=== PATIENT | male | born 1975 | race Caucasian/White ===

== ENCOUNTER 2018-08-05 04:41 | Inpatient (IN) | payer OTHER ==
[~2018-08-05] VITALS: Ht 165.1 cm; Wt 127.9 kg
[2018-08-05 04:47] VITALS: Ht 165.1 cm; Wt 127.9 kg
--- NOTE | 2018-08-05 04:53 | NUR ---
PT TAKEN TO 1T FOR EKG, PT WALKS WITH STEADY GAIT.
--- NOTE | 2018-08-05 05:02 | NUR ---
PATIENT SEEN WITH COMPLAINT OF SHORTNESS OF BREATH, CHEST PRESSURE AND VOMITING, H/O DIABETES, AND CARDIAC. PATIENT SEEN WITH MILD DYSPNEA AT REST. OXYGEN WAS GIVEN FOR SATURATION OF 89 % -90% ON ROOM AIR. PATIENT IS WAITNG FOR MD EVALUATION.
--- NOTE | 2018-08-05 05:23 | NUR ---
PATIENT WASS EEN BY . SALINE LOCK INSERTED . PATIENT MEDICATED WITH LASIX, NOTROPASTE AND ASA. BLOOD WAS DRAWN BY LAB
[2018-08-05 05:24] LABS: BASOPHIL % 3.2 % (0-2); PLATELET COUNT 189 x10^3mcL (130-400); RED CELL DISTRIBUTION WIDTH 13.8 % (11.5-14.5)
[2018-08-05] MEDS ORDERED: LIPI10 PO (05:26)
[2018-08-05] MEDS ORDERED: MONTELUKAST SOD10 M1 PO (05:26)
[2018-08-05] MEDS ORDERED: LASIX20 MG PO (05:27)
[2018-08-05] MEDS ORDERED: GOOD SENSE OMEP20 MG PO (05:27)
[2018-08-05] MEDS ORDERED: HYDRALAZINE HY100 MG PO (05:28)
[2018-08-05] MEDS ORDERED: COZAAR100 MG PO (05:28)
[2018-08-05] MEDS ORDERED: NOR10 PO (05:29)
[2018-08-05] MEDS ORDERED: TOPROL XL50 MG PO (05:29)
[2018-08-05] MEDS ORDERED: LANTUS SOLOS100 U/M1 SQ (05:30)
[2018-08-05] MEDS ORDERED: HUMI SC (05:31)
[2018-08-05 06:23] LABS: CALCIUM 8.3 mg/dL (8.5-10.1); CARBON DIOXIDE 30.6 mmol/L (21-32); CREATININE SERUM 2.1 mg/dL (0.7-1.3); POTASSIUM SERUM 4.6 mmol/L (3.5-5.1)
[2018-08-05 06:27] LABS: BILIRUBIN TOTAL 0.6 mg/dL (0.20-1.00); TOTAL PROTEIN, SERUM 6.2 g/dL (6.4-8.2)
[2018-08-05 06:28] LABS: ALBUMIN 2.7 g/dL (3.4-5.0)
--- NOTE | 2018-08-05 06:29 | NUR ---
PATIENT IS RESTING, AWAIITNG RESULTS AMD DISPOSITION. EVEN UNLABOURED RESPIRATION. PATIENT DID NOT VOID POST THE LASIX.
--- NOTE | 2018-08-05 07:03 | NUR ---
PATIENT AMBULATED TO THE BATHROOM. URINE COLLECTED AND SENT TO THE LAB.
--- NOTE | 2018-08-05 07:13 | NUR ---
RECIEVED REPORT MU LOU
[2018-08-05 08:43] LABS: AMPHETAMINE QUAL UR NONE DETECTED (See below)
--- NOTE | 2018-08-05 09:23 | NUR ---
CALLED REPORT TO MU MORLEY IN TELE TO ASSUME CARE OF PT.
--- NOTE | 2018-08-05 09:52 | NUR ---
PATIENT ARRIVED TO UNIT VIA [facility]. REPORT FROM MU BAE. PATIENT A/OX4, [place] SPEAKING ONLY, [place] ON R EAR. DENIES PAIN, CHEST PAIN, DIZZINESS OR NAUSEA. EDEMA NOTED IN BLE, L +1, R TRACE. ON O2 VIA NC AT 2 LPM. PATIENT SR, TEMP 97.4, 150/84 MAP 105, HR 63, RR 18, 94% ON NC. INSTRUCTED PATIENT ON USE OF CALL LIGHT, PATIENT VERBALIZES UNDERSTANDING.
--- NOTE | 2018-08-05 10:47 | NUR ---
PATIENT RECEIVING US OF RENAL & KIDNEYS AT THIS TIME. CALL LIGHT IN REACH.
[2018-08-05 10:51] VITALS: BP 150/84
--- NOTE | 2018-08-05 12:07 | NUR ---
DR SNYDER IN TO SPEAK WITH PATIENT. MU BREEN PRESENT TO TRANSLATE. PATIENT MADE AWARE THAT HE IS TO HAVE STRESS TEST TOMORROW. PATIENT VERBALIZES UNDERSTANDING. NO CHEST PAIN OR PRESSURE AT THIS TIME. CALL LIGHT IN REACH.
[2018-08-05 12:41] VITALS: BP 145/80
--- NOTE | 2018-08-05 13:23 | NUR ---
ECHOCARDIOGRAM BEING PERFORMED BY [employer]. PATIENT IN BED AT MOMENT, NO SYMPTONS OF CHEST PAIN. CALL LIGHT IN REACH. FRIEND AT BEDSIDE.
--- NOTE | 2018-08-05 16:49 | NUR ---
PATIENT SEATED AT BEDSIDE, NO COMPLAINTS OF CHEST PAIN OR DISCOMFORT AT THIS TIME. WILL CONTINUE TO MONITOR, PATIENT ALSO USING INCENTIVE SPIROMETER. EDUCATIONAL HANDOUTS GIVEN TO PATIENT IN APPROPRIATE LANGUAGE. CALL LIGHT IN REACH.
[2018-08-05 17:00] VITALS: BP 127/73
--- NOTE | 2018-08-05 18:27 | NUR ---
PATIENT IN BED SLEEPING. NO SIGNS OF CHEST PAIN OR SOB. WILL ENDORSE TO ONCOMING NURSE. CALL LIGHT IN REACH.
[2018-08-05 19:40] VITALS: BP 131/83
--- NOTE | 2018-08-05 19:40 | NUR ---
RECEIVED REPORT FROM AM NURSE, PT IN BED WATCHING TV. AAOX4, [place] SPEAKING ONLY TELE#35 BP131/83 HR63, DENIES CP/PRESSURE. TREADY PULSES TO BLE, TRACE EDEMA TO [place]. LUNG SOUND CTA ON 2L NC O2 98%, BREATHING EVEN AND UNLABORED, NO SIGNS OF RESP DISTRESS NOTED. ABD ROUND AND FIRM, DENIES PAIN, NAUSEA, COSTIPATION. VOIDS FREELY BRP, AMBULAROTY, SKIN INTACT. SL TO LEFT HAND, NO REDNESS NOTED. BED AT LOWEST POSITION, CALL LIGHT WITHING REACH, WILL CONTINUE TO MONITOR.
--- NOTE | 2018-08-06 03:01 | NUR ---
PT SLEEPING COMFORTABLY IN BED, BREATHING EVEN AND UNLABORED ON 2L NC. NO SIGNS OF RESP DISTRESS NOTED. CALL LIGHT WITHING REACH, WILL CONTINUE TO MONITOR.
--- NOTE | 2018-08-06 05:16 | NUR ---
PT SLEPT WELL THROUGHOUT NIGHT, KEPT NPO SINCE MIDNIGHT PER ORDER. BREATHING EVEN AND UNLABRED ON 2L NC, NO SIGSN OF RESP DISTRESS NOTED. BED AT LOWEST POSITION, CALL LIGHT WITHING REACH, WILL ENDORSE CARE TO AM NURSE.
[2018-08-06 05:53] VITALS: BP 143/77
[2018-08-06 06:49] LABS: CALCIUM 9.2 mg/dL (8.5-10.1); CARBON DIOXIDE 28.7 mmol/L (21-32); POTASSIUM SERUM 4.6 mmol/L (3.5-5.1)
[2018-08-06 06:51] LABS: BASOPHIL % 0.6 % (0-2); PLATELET COUNT 215 x10^3mcL (130-400); RED CELL DISTRIBUTION WIDTH 13.8 % (11.5-14.5)
--- NOTE | 2018-08-06 07:30 | NUR ---
RECEIVED PATIENT SITTING UP IN BED A/O X4, NO NEURO DEFICITS NOTED. TELE #[address] DENIES CHEST PAIN, BREATHING EVEN AND UNLABBORED ON ROOM AIR DENIES SOB, NO DISTRESS NOTED. DENIES ANY PAIN. IV TO LH H/L INTACT AND PATENT FLUSHED WELL WITH 10 ML NS, FREE FROM REDNESS AND INFILTRATION. PATIENT IS CALM WITH CARE. NPO STATUS MAINTAINED, PATIENT SCHEDULED FOR STRESS TEST AT 1330. PATIENT IS CALM WITH CARE. INSTRUCTED TO CALL FOR ASSISTANCE IF NEEDED. SAFETY PRECAUTIONS MAINTAINED. WILL MONITOR.
[2018-08-06 08:50] VITALS: BP 148/80
--- NOTE | 2018-08-06 09:52 | NUR ---
PATIENT RESTING IN BED COMFORTABLY, NO DISTRESS NOTED. ALL NEEDS ATTENDED TO, SAFETY PRECAUTIONS MAINTAINED. WILL MONITOR.
--- NOTE | 2018-08-06 12:20 | NUR ---
PATIENT SITTING UP IN CHAIR AT BEDSIDE WATCHING TELEVISION, NO DISTRESS NOTED, DENIES ANY PAIN. JOSE FROM [facility]PART[facility] AT BEDSIDE TO SPEAK WITH PATIENT REGARDING STRESS TEST, ALL QUESTIONS AND CONCERNS ADDRESSED. WILL RETURN IN ABOUT 45 MINUTES TO TAKE PATIENT DOWN FOR STRESS TEST. PATIENT VERBALIZED UNDERSTANDING. SAFETY PRECAUTIONS MAINTAINED. WILL MONITOR.
--- NOTE | 2018-08-06 13:10 | NUR ---
LATE ENTRY: PATIENT TAKEN DOWN TO [facility] DEPARTMENT FOR STRESS TEST AT 1310 VIA WHEELCHAIR.
--- NOTE | 2018-08-06 14:50 | NUR ---
PATIENT BACK FROM STRESS TEST RESTING IN BED COMFORTABLY NO DISTRESS NOTED, DENIES ANY PAIN. ALL NEEDS ATTENDED TO. SAFETY PRECAUTIONS MAINTAINED. WILL MONITOR.
--- NOTE | 2018-08-06 15:42 | NUR ---
DR. MONSON PAGED AT THIS TIME REGARDING STRESS TEST RESULTS. WILL WAIT FOR CALL BACK.
--- NOTE | 2018-08-06 15:53 | NUR ---
RECEIVED CALL BACK FROM DR. MONSON AND MADE HIM AWARE OF STRESS TEST RESULTS. PER DR. MONSON PATIENT MAY BE DISCHARGED HOME TODAY. ALL QUESTIONS AND CONCERNS ADDRESSED. PATIENT MADE AWARE, WILL FOLLOW UP WITH DISCHARGE ORDERS.
[2018-08-06 16:02] VITALS: BP 150/86
[2018-08-06 17:13] VITALS: BP 158/89
--- NOTE | 2018-08-06 17:15 | NUR ---
PATIENT STABLE FOR DISCHARGE HOME. DISCHARGE INSTRUCTIONS, BELONGINGS LIST AND EDUCATION REVIEWED WITH PATIENT. PATIENT VERBALIZED TO FOLLOW UP WITH PCP, RESUME ACTIVITY TOLERATED. ALL QUESTIONS AND CONCERNS ADDRESSED. PATIENT STATED WILL CALL HIS FRIEND TO PICK HIM UP AND WILL NOTIFY STAFF WHEN FRIEND ARRIVES. SAFETY PRECAUTIONS MAINTAINED. WILL MONITOR.
--- NOTE | 2018-08-06 18:05 | NUR ---
PATIENT STABLE FOR DISCHARGE HOME. IV TO LH REMOVED, CATH INTACT, ID BANDS REMOVED, TELE MONITOR REMOVED. FRIEND ARRIVED, PATIENT ASSISTED DOWN TO LOBBY ACCOMPANIED BY NURSE AID. ALL PERSONAL BELONGINGS SENT HOME WITH PATIENT.
== END 2018-08-06 18:05 | disposition home or self-care (01) | DRG 291 ==
LOC: ED 04:41 → DU 08:57
PROVIDERS: Emergency Medicine; ADMIT Internal Medicine Pulmonary Disease
DX: I13.0 Hypertensive heart and chronic kidney disease with heart failure and stage 1 through stage 4 chronic kidney disease, or unspecified chronic kidney disease (principal); I50.43 Acute on chronic combined systolic (congestive) and diastolic (congestive) heart failure; I20.8 Other forms of angina pectoris; N18.3 Chronic kidney disease, stage 3 (moderate); E11.22 Type 2 diabetes mellitus with diabetic chronic kidney disease; J45.909 Unspecified asthma, uncomplicated; E78.5 Hyperlipidemia, unspecified; E66.9 Obesity, unspecified; Z79.4 Long term (current) use of insulin; Z68.38 Body mass index [BMI] 38.0-38.9, adult; Z79.899 Other long term (current) drug therapy
CPT/HCPCS: 82962; 83880; A9500; G0378; J1644; J1940; J2785; Q0092

== ENCOUNTER 2020-02-01 18:57 | Inpatient (IN) | payer OTHER, SELFPAY ==
[~2020-02-01] VITALS: Ht 182.9 cm; Wt 115.2 kg
[~2020-02-01 18:57] MED LIST: COZAAR100 MG PO; GOOD SENSE OMEP20 MG PO; HUMI SC; HYDRALAZINE HY100 MG PO; LANTUS SOLOS100 U/M1 SQ; LASIX80 MG PO; LIPI10 PO; MONTELUKAST SOD10 M1 PO; NOR10 PO; TOPROL XL50 MG PO
[2020-02-01 20:40] LABS: BASOPHIL % 0.4 % (0.2-1.5); PLATELET COUNT 197 x10^3mcL (152-348)
[2020-02-01 20:45] LABS: rbc morphology (normal/abnorm) NORMAL (NORMAL)
[2020-02-01 21:30] LABS: BILIRUBIN TOTAL 0.4 mg/dL (0.20-1.00); CALCIUM 7.9 mg/dL (8.5-10.1); CARBON DIOXIDE 29.5 mmol/L (21-32)
[2020-02-01 21:34] LABS: ALBUMIN 2.3 g/dL (3.4-5.0); CREATININE SERUM 5.4 mg/dL (0.7-1.3); POTASSIUM SERUM 6.3 mmol/L (3.5-5.1)
[2020-02-02 00:38] VITALS: BP 229/114
[2020-02-02 01:32] LABS: UA SPECIFIC GRAVITY 1.015 (1.005-1.035); microscopic required? YES; urine erythrocyte NEGATIVE (NEGATIVE)
[2020-02-02 01:47] LABS: AMPHETAMINE QUAL UR NONE DETECTED (See below)
[2020-02-02] MEDS ORDERED: IBU800 M2 PO (02:35)
[2020-02-02] MEDS ORDERED: BENZONATATE150 MG PO (02:36)
[2020-02-02] MEDS ORDERED: PHOS PO (02:37)
[2020-02-02] MEDS ORDERED: RAYALDEE30 MCG PO (02:38)
[2020-02-02 07:35] LABS: PLATELET COUNT 211 x10^3mcL (152-348); RED CELL DISTRIBUTION WIDTH 12.7 % (12.1-16.2)
[2020-02-02] MEDS ORDERED: ONDANSETRON ODT8 M1 PO (09:40)
[2020-02-02] MEDS ORDERED: BENZONATATE200 MG PO (09:43)
[2020-02-02] MEDS ORDERED: LOPRESSOR100 M1 PO (09:45)
[2020-02-02 10:48] VITALS: Ht 182.9 cm; Wt 115.2 kg
[2020-02-02 16:13] LABS: BAND NEUTROPHIL 1 % (0-10); BASOPHIL 1 % (0-2); MONOCYTE 6 % (0-7); SEGMENTED NEUTROPHILS 72 % (37-75)
[2020-02-02 16:14] LABS: PLATELET MORPHOLOGY PLATELETS NORMAL; rbc morphology (normal/abnorm) ABNORMAL (NORMAL)
[2020-02-02 16:48] LABS: CALCIUM 8.1 mg/dL (8.5-10.1); MAGNESIUM 2.6 mg/dL (1.8-2.4); PHOSPHOROUS 3.7 mg/dL (2.5-4.9); POTASSIUM SERUM 4.7 mmol/L (3.5-5.1)
[2020-02-02 17:02] LABS: CALCIUM 8.2 mg/dL (8.5-10.1)
[2020-02-02 17:55] LABS: CREATININE SERUM 5.2 mg/dL (0.7-1.3)
[2020-02-02 18:11] LABS: CHOLESTEROL/HDL RATIO 4.4
[2020-02-02 18:13] LABS: CREATININE SERUM 4.7 mg/dL (0.7-1.3)
[2020-02-02 22:07] LABS: POTASSIUM SERUM 6.3 mmol/L (3.5-5.1)
[2020-02-03 04:32] LABS: CALCIUM 9.5 mg/dL (8.5-10.1); CARBON DIOXIDE 27.5 mmol/L (21-32); CREATININE SERUM 3.5 mg/dL (0.7-1.3); MAGNESIUM 2.6 mg/dL (1.8-2.4); POTASSIUM SERUM 4.5 mmol/L (3.5-5.1)
[2020-02-03 04:33] LABS: URIC ACID 9.7 mg/dL (3.5-7.2)
[2020-02-03 15:44] LABS: BASOPHIL % 0.6 % (0.2-1.5); PLATELET COUNT 290 x10^3mcL (152-348)
[2020-02-03 15:45] LABS: rbc morphology (normal/abnorm) NORMAL (NORMAL)
[2020-02-03 23:36] VITALS: BP 133/70
[2020-02-04 06:26] VITALS: BP 151/91
[2020-02-04 07:51] LABS: BASOPHIL % 0.8 % (0.2-1.5); PLATELET COUNT 294 x10^3mcL (152-348); RED CELL DISTRIBUTION WIDTH 12.6 % (12.1-16.2)
[2020-02-04 08:15] LABS: CALCIUM 9.4 mg/dL (8.5-10.1); CARBON DIOXIDE 31.4 mmol/L (21-32); CREATININE SERUM 2.8 mg/dL (0.7-1.3); MAGNESIUM 2.2 mg/dL (1.8-2.4); PHOSPHOROUS 5.3 mg/dL (2.5-4.9); POTASSIUM SERUM 4.1 mmol/L (3.5-5.1)
[2020-02-04 08:57] LABS: rbc morphology (normal/abnorm) NORMAL (NORMAL)
[2020-02-04 09:08] LABS: calcium (part of PTHIC) 8.9 mg/dL (8.7-10.2)
[2020-02-04 12:44] VITALS: BP 152/100
[2020-02-04 16:24] VITALS: BP 143/76
[2020-02-04 20:26] VITALS: BP 147/83
[2020-02-05 05:33] LABS: CALCIUM 8.8 mg/dL (8.5-10.1); CARBON DIOXIDE 32.9 mmol/L (21-32); CREATININE SERUM 2.4 mg/dL (0.7-1.3); MAGNESIUM 1.9 mg/dL (1.8-2.4); POTASSIUM SERUM 4.2 mmol/L (3.5-5.1)
[2020-02-05 05:34] VITALS: BP 163/92
[2020-02-05 08:20] VITALS: BP 159/86
[2020-02-05 12:19] VITALS: BP 169/94
[2020-02-05 13:08] LABS: BASOPHIL % 1.1 % (0.2-1.5); PLATELET COUNT 284 x10^3mcL (152-348); RED CELL DISTRIBUTION WIDTH 12.9 % (12.1-16.2)
[2020-02-05 13:42] VITALS: BP 116/64
[2020-02-05 14:42] LABS: rbc morphology (normal/abnorm) NORMAL (NORMAL)
[2020-02-05 16:55] VITALS: BP 121/76
[2020-02-05 19:58] VITALS: BP 127/70
[2020-02-06 05:33] VITALS: BP 156/81
[2020-02-06 07:56] LABS: BASOPHIL % 1.2 % (0.2-1.5); PLATELET COUNT 301 x10^3mcL (152-348); RED CELL DISTRIBUTION WIDTH 13.1 % (12.1-16.2)
[2020-02-06 08:08] VITALS: BP 125/80
[2020-02-06 08:13] LABS: rbc morphology (normal/abnorm) NORMAL (NORMAL)
[2020-02-06 08:15] LABS: CALCIUM 8.4 mg/dL (8.5-10.1); CARBON DIOXIDE 30.6 mmol/L (21-32); CREATININE SERUM 2.2 mg/dL (0.7-1.3); PHOSPHOROUS 4.4 mg/dL (2.5-4.9); POTASSIUM SERUM 4.2 mmol/L (3.5-5.1)
[2020-02-06 12:09] VITALS: BP 152/84
[2020-02-06 16:25] VITALS: BP 104/68
[2020-02-06 21:10] VITALS: BP 157/99
[2020-02-07 05:38] VITALS: BP 189/103
[2020-02-07 08:44] VITALS: BP 160/95
[2020-02-07 11:45] LABS: BILIRUBIN TOTAL 0.29 mg/dL (0.20-1.00); CALCIUM 8.8 mg/dL (8.5-10.1); CARBON DIOXIDE 29.8 mmol/L (21-32); CREATININE SERUM 2.4 mg/dL (0.7-1.3); POTASSIUM SERUM 4.6 mmol/L (3.5-5.1); TOTAL PROTEIN, SERUM 6.2 g/dL (6.4-8.2)
[2020-02-07 11:46] LABS: ALBUMIN 2.3 g/dL (3.4-5.0); BASOPHIL % 0.2 % (0.2-1.5); PLATELET COUNT 292 x10^3mcL (152-348); RED CELL DISTRIBUTION WIDTH 12.8 % (12.1-16.2)
[2020-02-07 12:10] VITALS: BP 164/83
[2020-02-07 12:25] LABS: rbc morphology (normal/abnorm) NORMAL (NORMAL)
[2020-02-07] MEDS ORDERED: ADA30 PO (16:11)
[2020-02-07] MEDS ORDERED: DECADRON6 MG PO (16:12)
[2020-02-07] MEDS ORDERED: ELIQUIS2.5 MG PO (16:13)
[2020-02-07 16:33] VITALS: BP 138/96
[2020-02-07 18:43] VITALS: BP 138/96
[2020-02-10] MEDS ORDERED: ADA30 PO (17:34)
[2020-02-10] MEDS ORDERED: DECADRON6 MG PO (17:34)
[2020-02-10] MEDS ORDERED: ELIQUIS5 MG PO (17:34)
== END 2020-02-07 21:12 | disposition home or self-care (01) | DRG 177 ==
LOC: ED 18:57 → DU 22:54
PROVIDERS: Emergency Medicine; Hospitalist; Internal Medicine; Internal Medicine Pulmonary Disease; ADMIT Hospitalist; ATTEND Hospitalist
PROC: XW13325 Transfusion of Convalescent Plasma (Nonautologous) into Peripheral Vein, Percutaneous Approach, New Technology Group 5 (ICD-10-PCS; principal; 2020-02-05)
DX: U07.1 COVID-19 (principal); I21.4 Non-ST elevation (NSTEMI) myocardial infarction; I13.0 Hypertensive heart and chronic kidney disease with heart failure and stage 1 through stage 4 chronic kidney disease, or unspecified chronic kidney disease; N17.9 Acute kidney failure, unspecified; N18.4 Chronic kidney disease, stage 4 (severe); E11.22 Type 2 diabetes mellitus with diabetic chronic kidney disease; N18.9 Chronic kidney disease, unspecified; I50.9 Heart failure, unspecified; E11.65 Type 2 diabetes mellitus with hyperglycemia; E87.5 Hyperkalemia; Z79.4 Long term (current) use of insulin; Z79.899 Other long term (current) drug therapy; E11.21 Type 2 diabetes mellitus with diabetic nephropathy; E78.5 Hyperlipidemia, unspecified; D63.1 Anemia in chronic kidney disease
CPT/HCPCS: 36600; 82652; 82962; 83880; 85378; G0378; J0360; J0456; J0696; J1100; J1644; J1815; J1940; J7030; J7040; J7050; U0003